=== PATIENT | male | born 1985 | race Caucasian/White ===

== ENCOUNTER → 2021-09-07 | Outpatient (CLI) | payer BC ==
[~2021-09-07] MED LIST: CATHETER FLUSH 10 ML SYR IVP PRN
--- NOTE | 2021-09-07 12:07 | Diagnostic Imaging Report ---
INDICATION: Nausea and reflux. Patient was administered 5.4 mCi technetium 99m Choletec intravenously and imaging over the abdomen was performed. At 60 minutes patient ingested 8 ounces of ensure and the gallbladder ejection fraction was calculated. There is homogeneous uptake of activity by the liver with prompt excretion of activity into the common duct and gallbladder. There is normal passage of activity into the small bowel. Gallbladder ejection fraction is borderline normal at 35%. IMPRESSION: Normal HIDA scan and gallbladder ejection fraction. Dictated by: Dictated on workstation # [id number]
== END ==
LOC: CARD 10:00
PROVIDERS: ATTEND Surgery
DX: K21.9 Gastro-esophageal reflux disease without esophagitis (principal)
CPT/HCPCS: 78227; A9537

== ENCOUNTER 2021-09-18 05:34 | Outpatient (CLI) | payer BC ==
[~2021-09-18] VITALS: Ht 185.5 cm; Wt 102.3 kg
[2021-09-18] MEDS ORDERED: PANT40TA2 PO (12:54)
== END 2021-09-18 13:35 | disposition home or self-care (01) ==
LOC: PREOP 05:34
PROVIDERS: ATTEND Surgery
DX: Z01.818 Encounter for other preprocedural examination (principal)

== ENCOUNTER 2021-09-20 08:36 | Day surgery (SDC) | payer BC ==
--- NOTE | 2021-09-18 09:48 | HISTORY AND PHYSICAL ---
DATE OF SERVICE: PROCEDURE DATE: 09/20/2021 ATTENDING PRIMARY CARE PHYSICIAN: Dr. Rex Stewart. HISTORY OF PRESENT ILLNESS: The patient is a 35-year-old male who was seen in 03/2019 for worsening reflux. He did undergo an EGD at that time by Dr. Hernández and reports that this was mostly unremarkable and was started on omeprazole at that time. He reports that he was recently switched to Protonix due to continued episodes of reflux as well as nausea after eating. He reports that at times he does have difficulty swallowing; however, he has had these issues for the past year. He denies any abdominal pain as well as no diarrhea or constipation. He reports that he has not noticed any association with any specific foods and his symptoms. He does report that he does do fine with liquids; however, solid foods do usually get stuck. He reports he did have a gallbladder ultrasound, which was negative. He then recently underwent a HIDA scan, which did show a gallbladder ejection fraction of 35% and he did have reproduction of symptoms with the test. PAST MEDICAL HISTORY: Gastroesophageal reflux disease. PAST SURGICAL HISTORY: Right Rajendra Milton surgery x2, right ACL reconstruction x2, left biceps tendon repair and left tennis elbow surgery, 2020. ALLERGIES: No known drug allergies. MEDICATIONS: Protonix 40 mg daily. SOCIAL HISTORY: Negative for tobacco smoke, previous for chewing tobacco for 15 years, quit in 2019. Social for alcohol. FAMILY HISTORY: Father, hypertension. Paternal grandmother, breast cancer. Paternal grandfather, hypertension. VITAL SIGNS: Blood pressure is 120/80. Current weight is 245 pounds at 6 feet 1 inches. REVIEW OF SYSTEMS: This is a well-nourished male in no acute distress. He is not experiencing any chest pain or diaphoresis. No shortness of breath or difficulty breathing. He does report episodes of epigastric to right upper quadrant abdominal pain as well as nausea, but no vomiting. He denies any diarrhea or constipation as well as no red blood per rectum nor any dark tarry stools. No fever or chills. No recent inadvertent weight loss. All other review of systems negative. PHYSICAL EXAMINATION: CHEST: Clear. Good breath sounds bilaterally. HEART: Regular, no murmurs. EXTREMITIES: No lower extremity edema. Negative Homans sign. HEENT: No scleral icterus. NECK: No cervical lymphadenopathy. ABDOMEN: Soft, nontender, nondistended. SKIN: Warm, dry and pink. NEUROLOGIC: Awake, alert and oriented x3. ASSESSMENT AND PLAN: A 35-year-old male with symptomatic biliary dyskinesia. At this time, he also has episodes of dysphagia and we will recommend proceeding with a laparoscopic cholecystectomy as well as EGD with possible balloon dilatation. Job ID: [id number] DocumentID: [id number] Dictated Date: 09/18/2021 09:23:27 Civil Engineer In Training Date: 09/18/2021 09:47:16 Dictated By: URIEL ROBINS APRN [facility]
[2021-09-20] VITALS (10 sets, daily range): BP systolic 115–130; BP diastolic 60–86
[~2021-09-20] VITALS: Ht 185.5 cm; Wt 102.3 kg
[~2021-09-20 08:36] MED LIST changes: -CATHETER FLUSH 10 ML SYR IVP PRN; +PANT40TA2 PO
[2021-09-20] MEDS ORDERED: ceFAZolin 2 GM IV Premixed 50 ML IV ONE (09:00)
[2021-09-20] MEDS ORDERED: LACTATED RINGERS 1,000 ML IV PRN (09:00)
[2021-09-20] MEDS ORDERED: proPOfol 200 MG/20 ML (DIPRIVAN) VIAL IV ONE (09:19)
[2021-09-20] MEDS ORDERED: fentaNYL INJ 100 MCG/2 ML AMP ONE (09:19)
[2021-09-20] MEDS ORDERED: LIDOCAINE PF 2% 5 ML (XYLOCAINE) VIAL ONE (09:19)
[2021-09-20] MEDS ORDERED: MIDAZOLAM 2 MG/2 ML (VERSED) VIAL ONE (09:19)
[2021-09-20] MEDS ORDERED: ONDANSETRON 4 MG/2 ML (SDV) Z0FRAN ONE (09:19)
--- NOTE | 2021-09-20 09:27 | Progress Note-Pre Operative ---
Pre-Operative Progress Note H&P Reviewed The H&P was reviewed, patient examined and no changes noted. Date Seen by Provider: Sep 20, 2021 Time Seen by Provider: 09:25 Date H&P Reviewed: Sep 20, 2021 Time H&P Reviewed: 09:20 Pre-Operative Diagnosis: Symptomatic biliary dyskinesia, GERD, Dysphagia UREIL ROBINS APRN Sep 20, 2021 09:27
[2021-09-20] MEDS ORDERED: ONDANSETRON 4 MG/2 ML (SDV) Z0FRAN IVP PRN ×2 (09:30→12:30)
[2021-09-20] MEDS ORDERED: ACETAMINOPHEN 325 MG TABLET PO PRN (09:30)
[2021-09-20] MEDS ORDERED: HYDROcodone/APAP 5 MG/325 MG (LORTAB) TAB PO ONE (09:30)
[2021-09-20] MEDS ORDERED: HYDR-3817 PO (09:30)
[2021-09-20] MEDS ORDERED: morphine INJ 10 MG/ML 1ML (SYR OR VIAL) IVP PRN (09:30)
--- NOTE | 2021-09-20 09:30 | Discharge Inst-Surgical ---
D/C Lap Instructions-KIDO Reconcile Patient Problems Problems Reviewed?: Yes New, Converted, or Re-Newed RX: RX on Chart Follow Up Appt in 2 weeks Activity as tolerated No driving for 24 hours No driving while on pain medications Incentive Spirometry use every 2 hours while awake Regular Diet Symptoms to Report: Fever over 101 degree F, Nausea/Vomiting Infection Signs and Symptoms to report: Increased redness, Foul odor of wound, Increased drainage Bathing instructions: May shower Operative Area Clean/Dry; Keep incision clean/dry If any problems/questions: Contact your physician or go to Emergency Room URIEL ROBINS APRN Sep 20, 2021 09:30
[2021-09-20] MEDS ORDERED: LIDOCAINE/EPI 1%-1:100,000 (XYLOCAINE) 20ML ONE (10:50)
[2021-09-20] MEDS ORDERED: GLYCOPYRROLATE 0.2 MG/ML (ROBINUL) 2 ML VIAL ONE (11:54)
[2021-09-20] MEDS ORDERED: NEOSTIGMINE (BLOXIVERZ ) 1 MG/1ML 10 ML VIAL ONE (11:54)
[2021-09-20] MEDS ORDERED: SEVOFLURANE (ULTANE) 15 ML INHAL SOLN ONE (11:55)
[2021-09-20] MEDS ORDERED: HYDROmorphone 2 MG/ML VIAL (DILAUDID) ONE (11:56)
--- NOTE | 2021-09-20 12:08 | Progress Note-Post Operative ---
Post-Operative Progess Note Surgeon (s)/Software Design Engineer (s) Surgeon Dr. Chucho Rodgers M.D. Software Design Engineer: Guero Robins APRN Pre-Operative Diagnosis Symptomatic biliary dyskinesia, GERD, Dysphagia Post-Operative Diagnosis Biliary dyskinesia, reflux esophagitis [place] class C with distal esophageal stricture, Small hiatal hernia (1.5 cm), moderate gastritis Procedure & Operative Findings Date of Procedure 09/20/21 Procedure Performed/Findings Laparoscoopic cholecystectomy and EGD with biopsy and balloon dilation Anesthesia Type GET Estimated Blood Loss Estimated blood loss (mL): Minimal Specimens/Packing Specimens Removed 1) Gallbladder 2) GE Junction 3) Antrum GUERO ROBINS FIRE INVESTIGATION MANAGER Sep 20, 2021 12:08
--- NOTE | 2021-09-20 12:28 | Anesthesia-General Post-Op ---
General Patient Condition Mental Status/LOC: Same as Preop Cardiovascular: Satisfactory Nausea/Vomiting: Absent Respiratory: Satisfactory Pain: Controlled Complications: Absent Post Op Complications Complications None Follow Up Care/Instructions Patient Instructions None needed. Anesthesia/Patient Condition Patient Condition Patient is doing well, no complaints, stable vital signs, no apparent adverse anesthesia problems. No complications reported per nursing. PEGGY PRIETO CRNA Sep 20, 2021 12:27
[2021-09-20] MEDS ORDERED: HYDROmorphone 2 MG/ML VIAL (DILAUDID) IV ONE (12:30)
[2021-09-20] MEDS ORDERED: HYDROcodone/APAP 5 MG/325 MG (LORTAB) TAB ONE (14:06)
--- NOTE | 2021-09-20 20:18 | OPERATIVE REPORT ---
DATE OF SERVICE: 09/20/2021 ATTENDING PRIMARY CARE PHYSICIAN: Rex Stewart DO PREOPERATIVE DIAGNOSIS: Symptomatic biliary dyskinesia, dysphagia, gastroesophageal reflux disease. POSTOPERATIVE DIAGNOSES: Biliary dyskinesia, reflux esophagitis, Huer[place] grade C, mild distal esophageal stricture, small hiatal hernia 1.5 cm in size, moderate severity gastritis. No distal obstructions. PROCEDURE: Laparoscopic cholecystectomy, EGD with biopsy and balloon dilatation. SURGEON: Princess Davis MD TALENT ACQUISITION ASSISTANT: Guero Abarca APRN. ANESTHESIA: General endotracheal. ESTIMATED BLOOD LOSS: Minimal. FINDINGS: Biliary dyskinesia, reflux esophagitis, Huerfano grade C, mild distal esophageal stricture, small hiatal hernia 1.5 cm in size, moderate severity gastritis. No distal obstructions. DISPOSITION: The patient tolerated the procedure well. INDICATIONS: The patient is a 35-year-old male who has had issues with gastroesophageal reflux disease for a number of years now. He reports that over time this has progressed to dysphagia on a more common basis. He states that this does occur at least few times a week. He does have some risk factors for gastroesophageal reflux disease including previous history of chewing tobacco as well as drinking alcoholic beverages approximately three times a week. He also does drink a significant amount of caffeinated beverages. He also has developed abdominal bloating, nausea as well as early satiety after eating meals. He underwent an ultrasound, which did not show any gallstones. He then underwent a HIDA scan, which showed a low ejection fraction of 35% as well as reproduction of symptoms including nausea and abdominal bloating after the administration of the Kinevac analogue. This was consistent with symptomatic biliary dyskinesia. DESCRIPTION OF PROCEDURE: The patient was brought to the operating room, laid supine on the table. After adequate IV pain and sedative medications and general endotracheal intubation, the abdomen was prepped and draped in standard surgical fashion. A 0.5% Marcaine with epinephrine was used to anesthetize overlying skin in the left upper abdominal quadrant and a transverse skin incision made using a #15 blade. An 0 silk suture was applied to the medial aspect incision for retraction and a Veress needle inserted with a low opening pressure of 0 mmHg and the abdomen was then insufflated to 15 mmHg pressure. The Veress needle removed and a 5 mm XL trocar placed followed by a 5 mm 45-degree angle laparoscope visualizing the peritoneal cavity. A 4-quadrant abdominal exploration was performed. There was no gallbladder wall thickening, slightly distended gallbladder. Remainder of the liver, stomach, small bowel appeared normal. Under direct visualization, we then proceeded to place a supraumbilical 10 mm port after the skin and peritoneal lining were anesthetized using 0.5% Marcaine with epinephrine and a transverse skin incision made using 15 blade. In a similar manner, a right upper abdominal quadrant 5 mm port was placed. The patient was then placed in reverse Trendelenburg position as well as plane right side up, left side down. The fundus of the gallbladder was then retracted anteriorly and superiorly. The hepatoduodenal ligament was then dissected using blunt dissection as well as electrocautery using the hook instrument as well as a [place] dissector. The entire critical view of safety was identified including the triangle of Calot as well as the cystic duct and artery as only two structures going into the gallbladder as well as the cystic plate behind the proximal gallbladder. A timeout was then taken and cystic duct and artery were then clipped proximally and distally and cut with EndoShears. The gallbladder was then dissected off the liver bed using cautery on hook instrument with visualization of good hemostasis as well as no leaking ducts of Luschka. The gallbladder was removed through the 10 mm port site using an EndoCatch bag. The 10 mm port site fascia and peritoneum were then closed under direct visualization using a Rajesh-Meenu device and 0 Vicryl suture. The abdomen was then desufflated and remaining ports removed. All skin incisions were closed using 4-0 Monocryl running subcuticular sutures. Wounds were then cleaned and covered with Dermabond. The mouthpiece was applied. The endoscope was placed in the mouth, visualizing the pharynx hypopharyngeal region. Vocal cords, epiglottis and vallecula identified and appeared to be normal. The endoscope was then gently intubated the esophageal opening and esophagus insufflated. The endoscope was then advanced through the first, second and third portion of esophagus at the level of the GE junction, reflux esophagitis, Huerfano grade C identified as well as a distal esophageal stricture. A biopsy was taken with forceps with visualization of good hemostasis. The endoscope was then advanced in the stomach and endoscope retroflexed visualizing a small hiatal hernia approximately 1.5 cm in size. There was a moderate severity gastritis. No formal ulcerations, polyps, or any neoplasms. A biopsy was taken with forceps with visualization of good hemostasis. The endoscope was then advanced to the pylorus and the first and second portion of the duodenum, which appeared normal with no distal obstructions. The balloon was then placed in the stomach and pulled back to the area of the stricture. We then proceeded integrated stepwise fashion from 2, 4, then eventually 6 atmospheres of pressure or 20 mm in luminal diameter with moderate resistance and left this in place for approximately 60 seconds. The balloon was then desufflated and removed with visualization of good hemostasis as well as no mucosal tears. The endoscope was then slowly withdrawn while taking a second look and suctioning of residual air with no additional findings. The patient tolerated the procedure well. We will start him on IV and oral pain medication as well as a clear liquid diet. Once he is tolerating clears, has good pain control with oral pain medications, ambulating well, we will discharge him home where he will be instructed to do no heavy lifting or exertion. He also needs to avoid caffeinated beverages, spicy, greasy and acidic foods as well as take in small and more frequent meals and avoidance of eating at night and proceed with a moderation of alcohol and caffeinated beverages. Job ID: [id number] DocumentID: [id number] Dictated Date: 09/20/2021 12:23:36 Cartographic Designer Date: 09/20/2021 20:17:53 Dictated By: PRINCESS DAVIS MD
== END 2021-09-20 14:30 | disposition home or self-care (01) ==
LOC: SDC 08:36
PROVIDERS: ATTEND Surgery
DX: K82.8 Other specified diseases of gallbladder (principal); K81.1 Chronic cholecystitis; K21.00 Gastro-esophageal reflux disease with esophagitis, without bleeding; K22.2 Esophageal obstruction; K44.9 Diaphragmatic hernia without obstruction or gangrene; K29.70 Gastritis, unspecified, without bleeding; Z79.899 Other long term (current) drug therapy; Z87.891 Personal history of nicotine dependence
CPT/HCPCS: 87081; 88304; 88305; 94664

== ENCOUNTER → 2022-07-23 | Outpatient (CLI) | payer BC ==
[~2022-07-23] MED LIST changes: +HYDR-3817 PO
== END ==
LOC: CARD 09:12
PROVIDERS: ATTEND Internal Medicine Cardiovascular Disease
DX: R07.89 Other chest pain (principal)
CPT/HCPCS: C8929; C8930; 93306